=== PATIENT | male | born 1935 | race Native Hawaiian/Other Pacific Islander ===

== ENCOUNTER → 2016-05-12 | Outpatient (CLI) | payer MEDICARE, OTHER | END | disposition home or self-care (01) | LOC: GMA 18:04 | PROVIDERS: ATTEND Nurse Practitioner Family | DX: M10.071 Idiopathic gout, right ankle and foot (principal) ==

== ENCOUNTER → 2016-11-01 | Outpatient (CLI) | payer MEDICARE, OTHER | LOC: GMAB 10:43 | PROVIDERS: ATTEND Family Medicine | DX: D51.3 Other dietary vitamin B12 deficiency anemia (principal); D64.9 Anemia, unspecified; R53.83 Other fatigue; Z12.5 Encounter for screening for malignant neoplasm of prostate | CPT/HCPCS: 82607; 82728; 82746; 83540; 83550; 84443; G0103 ==

== ENCOUNTER → 2017-11-29 | Outpatient (CLI) | payer MEDICARE, OTHER | LOC: GMAE 16:46 | PROVIDERS: ATTEND Family Medicine | DX: Z79.899 Other long term (current) drug therapy (principal) ==

== ENCOUNTER → 2019-04-18 | Outpatient (CLI) | payer MEDICARE, OTHER | LOC: GMAE 12:23 | PROVIDERS: ATTEND Family Medicine | DX: Z12.5 Encounter for screening for malignant neoplasm of prostate (principal); E11.9 Type 2 diabetes mellitus without complications; Z79.899 Other long term (current) drug therapy | CPT/HCPCS: 84443; G0103 ==

== ENCOUNTER → 2020-05-09 | Outpatient (CLI) | payer MEDICARE, OTHER | LOC: GMAE 11:24 | PROVIDERS: ATTEND Family Medicine | DX: Z12.5 Encounter for screening for malignant neoplasm of prostate (principal); E55.9 Vitamin D deficiency, unspecified; R73.03 Prediabetes; E78.2 Mixed hyperlipidemia; Z79.891 Long term (current) use of opiate analgesic | CPT/HCPCS: 82306; G0103 ==